=== PATIENT | female | born 1990 | race Caucasian/White ===

== ENCOUNTER 2021-06-26 15:47 | Emergency (ER) | payer MEDICAID ==
[~2021-06-26] VITALS: Ht 160 cm; Wt 45.5 kg
[2021-06-26 16:11] VITALS: BP 114/81
[2021-06-26 16:59] LABS: CLARITY,URINE CLOUDY (Clear); COLOR,URINE YELLOW (Yellow); GLUCOSE, URINE NEGATIVE (Neg); KETONES,URINE TRACE mg/dl (Neg); LEUKOCYTE ESTERASE ,URINE NEGATIVE (Neg); NITRITES, URINE POSITIVE (Neg); OCCULT BLOOD,URINE NEGATIVE (Neg); PH,URINE 5.5 (4.8-8.0); PROTEIN,URINE TRACE mg/dl (Neg); UROBILINOGEN,URINE 0.2 E.U/dL (0.2-1.0)
[2021-06-26 17:01] LABS: UA COLLECTION TYPE CLN CATCH MIDSTREAM
[2021-06-26] MEDS ORDERED: CefTRIAXone 1000mg IM Kit (w/lidocaine diluent) IM STA (17:02)
[2021-06-26 17:03] LABS: URINE HCG NEGATIVE (NEG)
[2021-06-26] MEDS ORDERED: azithromycin 250mg tablet PO ONE (17:05)
[2021-06-26 17:07] LABS: MUCUS STRANDS MANY /LPF (Neg); SQUAMOUS EPITHELIAL CELL,UR MANY /LPF (FEW)
[2021-06-26 17:08] LABS: HYALINE CASTS >30 /LPF (NEGATIVE); TRANSITIONAL EPI CELLS,URINE FEW /HPF
[2021-06-26 17:09] LABS: BACTERIA,URINE 4+ /HPF (Neg)
[2021-06-26 17:11] LABS: RBC,URINE 0-2 /HPF (0-2)
--- NOTE | 2021-06-26 17:13 | NUR ---
urine rejected for culture
[2021-06-26 17:19] LABS: WBC,URINE 0-4 /HPF (0-4)
[2021-06-26 17:20] LABS: CAL OXALATE CRYSTALS 4+ /HPF (NEGATIVE)
--- NOTE | 2021-06-26 18:37 | NUR ---
PT WAS SEEN AND DISCHARGED BY JANIE QUICK
== END 2021-06-26 18:37 | disposition home or self-care (01) ==
LOC: ER 15:48
DX: Z20.2 Contact with and (suspected) exposure to infections with a predominantly sexual mode of transmission (principal); N89.8 Other specified noninflammatory disorders of vagina
CPT/HCPCS: 36415; 81001; 81025; 87491; 87591; 96372; 99283; J0696

== ENCOUNTER 2021-12-24 04:06 | Emergency (ER) | payer MEDICAID, OTHER ==
[~2021-12-24] VITALS: Ht 160 cm; Wt 45.5 kg
[2021-12-24 04:10] VITALS: BP 126/86
[2021-12-24] MEDS ORDERED: clindamycin 150mg capsule PO ONE (05:50)
[2021-12-24] MEDS ORDERED: CLIN-145 PO (05:51)
== END 2021-12-24 06:01 | disposition home or self-care (01) ==
LOC: ER 04:06
DX: L03.032 Cellulitis of left toe (principal); Z79.2 Long term (current) use of antibiotics
CPT/HCPCS: 99283

== ENCOUNTER 2024-05-11 11:26 | Emergency (ER) | payer MEDICAID ==
[~2024-05-11] VITALS: Ht 160 cm; Wt 55.7 kg
[2024-05-11 11:31] VITALS: BP 129/79; PULSE 116; O2SAT 100
[2024-05-11] MEDS ORDERED: AMOX-580 PO (12:02)
[2024-05-11] MEDS ORDERED: METH-798 PO (12:02)
[2024-05-11 12:12] VITALS: RESP 16; TEMP 97.9
[2024-05-14 11:33] LABS: CHLAMYDIA TRACHOMATIS, NAA Positive (Negative)
== END 2024-05-11 12:13 | disposition home or self-care (01) ==
LOC: ER 11:26
DX: R25.2 Cramp and spasm (principal); J32.8 Other chronic sinusitis
CPT/HCPCS: 36415; 87491; 99283

== ENCOUNTER 2024-09-12 18:32 | Emergency (ER) | payer MEDICAID ==
[~2024-09-12] VITALS: Ht 160 cm; Wt 52.3 kg
[~2024-09-12 18:32] MED LIST: METH-798 PO
[2024-09-12 18:40] VITALS: BP 135/84; PULSE 110; O2SAT 97
[2024-09-12] MEDS ORDERED: AMOX-580 PO (20:19)
[2024-09-12] MEDS ORDERED: HYDR-3965 PO (20:19)
[2024-09-12] MEDS: TETanus/Pertussis (Acell)/Diphther VAC/PF (Tdap-Adult) 0.5ml syringe IMVAC ONE (20:27)
[2024-09-12 20:29] VITALS: RESP 16
[2024-09-12] MEDS: HYDROcodone/acetaminophen 10/325mg tab PO ONE (20:29)
[2024-09-12 21:38] VITALS: TEMP 97.7
== END 2024-09-12 21:42 | disposition home or self-care (01) ==
LOC: ER 18:33
DX: S51.811A Laceration without foreign body of right forearm, initial encounter (principal); Z79.899 Other long term (current) drug therapy; W54.0XXA Bitten by dog, initial encounter; Y93.89 Activity, other specified; Y92.89 Other specified places as the place of occurrence of the external cause; Y99.8 Other external cause status; Z88.8 Allergy status to other drugs, medicaments and biological substances
CPT/HCPCS: 90471; 90715; 99283; J7030; A4565; A6258

== ENCOUNTER 2024-10-22 14:44 | Emergency (ER) | payer MEDICAID | END 2024-10-22 15:27 | disposition left against medical advice (07) | LOC: ER 14:44 | DX: J11.1 Influenza due to unidentified influenza virus with other respiratory manifestations (principal); Z53.21 Procedure and treatment not carried out due to patient leaving prior to being seen by health care provider ==

== ENCOUNTER 2025-02-04 07:41 | Emergency (ER) | payer MEDICAID ==
[~2025-02-04] VITALS: Ht 160 cm; Wt 54.9 kg
[2025-02-04 08:30] LABS: BILIRUBIN,URINE NEGATIVE (Neg); CLARITY,URINE CLOUDY (Clear); COLOR,URINE YELLOW (Yellow); GLUCOSE, URINE 250 mg/dl (Neg); KETONES,URINE NEGATIVE (Neg); LEUKOCYTE ESTERASE ,URINE SMALL (Neg); NITRITES, URINE POSITIVE (Neg); OCCULT BLOOD,URINE LARGE (Neg); PH,URINE 5.5 (4.8-8.0); PROTEIN,URINE 100 mg/dl (Neg); UROBILINOGEN,URINE 0.2 E.U/dL (0.2-1.0)
[2025-02-04 08:30] LABS: BASOPHILS % (AUTO) 0.2 % (0-1); EOSINOPHILS % (AUTO) 0 % (0-6); HEMATOCRIT 37.7 % (35.0-45.0); HEMOGLOBIN 12.2 g/dl (12.0-16.0); LYMPHOCYTES # (AUTO) 0.5 X10'3 (1.1-4.8); LYMPHOCYTES % (AUTO) 3.6 % (21-51); MEAN CORPUSCULAR HGB CONC 32.4 g/dL (33.0-36.5); MEAN CORPUSCULAR VOLUME 89.7 FL (78-98); MEAN PLATELET VOLUME 8.1 FL (7.4-10.4); MONOCYTES # (AUTO) 1.6 X10'3 (0-0.9); MONOCYTES % (AUTO) 11.8 % (2-12); NEUTROPHILS # (AUTO) 11.5 X10'3 (1.8-7.7); NEUTROPHILS % (AUTO) 84.4 % (42-75); PLATELET COUNT 224 X10'3 (140-440); RED CELL DISTRIBUTION WIDTH 14.1 % (11.5-14.5); WHITE BLOOD COUNT 13.6 X10'3 (4.5-11.0)
[2025-02-04 08:42] LABS: UA COLLECTION TYPE CLN CATCH MIDSTREAM
[2025-02-04 08:43] LABS: URINE HCG NEGATIVE (NEG)
[2025-02-04 08:45] LABS: BACTERIA,URINE 4+ /HPF (Neg); WBC,URINE 50-100 /HPF (0-4)
[2025-02-04 08:46] LABS: ALANINE AMINOTRANSFERASE 14 U/L (12-78); ALBUMIN 2.8 G/DL (3.4-5.0); ALBUMIN/GLOBULIN RATIO 0.6 (1.1-1.5); ALKALINE PHOSPHATASE 79 IU/L (46-116); ANION GAP 9 (8-16); ASPARTATE AMINO TRANSFERASE 17 U/L (10-37); BILIRUBIN,TOTAL 0.2 MG/DL (0.1-1.0); BLOOD UREA NITROGEN 12 MG/DL (7-18); BUN/CREATININE RATIO 11.7 (10.0-20.0); CALCIUM 7.9 MG/DL (8.5-10.1); CHLORIDE 99 MMOL/L (99-107); CREATININE 1.03 MG/DL (0.40-0.90); GLUCOSE 184 MG/DL (70-104); LIPASE 74 U/L (16-77); POTASSIUM 3.5 MMOL/L (3.5-5.1); SODIUM 132 MMOL/L (135-145); TOTAL CARBON DIOXIDE 23.8 MMOL/L (24-32); TOTAL PROTEIN 7.8 G/DL (6.4-8.2); eCRCL 62 ML/MIN; eGFR 61 ML/MIN
[2025-02-04 08:47] LABS: RBC,URINE TNTC /HPF (0-2)
[2025-02-04 08:48] LABS: MUCUS STRANDS FEW /LPF (Neg); RENAL CELLS, URINE FEW /HPF; SQUAMOUS EPITHELIAL CELL,UR FEW /LPF (FEW); WBC CLUMPS,URINE MANY /HPF (NEGATIVE)
[2025-02-04 08:49] LABS: COARSE GRANULAR CAST 0-3 /LPF (NEGATIVE)
[2025-02-04 08:50] LABS: YEAST MODERATE /HPF (NEGATIVE)
[2025-02-04] MEDS: ketorolac trometh 15mg/ml vial 15 MG/ML ML IM ONE (10:30)
[2025-02-04] MEDS ORDERED: CefTRIAXone/D5W-Rocephin 1gm 50 ML IV ONE (10:45)
[2025-02-04] MEDS ORDERED: normal saline 1000ML IV soln IVB ONE (10:45)
[2025-02-04] MEDS: HYDROcodone/acetaminophen 5mg/325mg tablet PO ONE (11:28)
[2025-02-04] MEDS: CefTRIAXone 1000mg IM Kit (w/lidocaine diluent) IM ONE (11:29)
[2025-02-04] MEDS ORDERED: CEFP200T13 PO (11:56)
[2025-02-04 12:55] VITALS: BP 107/64; PULSE 109; RESP 14; TEMP 99.7; O2SAT 95
== END 2025-02-04 12:56 | disposition home or self-care (01) ==
LOC: ER 07:41
DX: N10 Acute pyelonephritis (principal); R51.9 Headache, unspecified
CPT/HCPCS: 36415; 76770; 80053; 81001; 81025; 83690; 85025; 87088; 96372; 99285; J0696; J1885; J7030